=== PATIENT | female | born 1935 | race Caucasian/White ===

== ENCOUNTER → 2016-04-29 | Outpatient (CLI) | payer OTHER ==
[~2016-04-29] MED LIST: ASPEC81 PO; HYDR-5688 PO; LEVO100T7 PO; LPT40 PO
[2016-04-29 17:50] LABS: BASO % 0.5 %; BASO ABS # 0.04 K/uL (0-0.2); COMPLETE YES; EOS % 3.5 %; HEMATOCRIT 38.4 % (37-47); IG% 0.1 %; LYMPH % 30.2 %; LYMPH ABS # 2.35 K/uL (1.2-3.4); MEAN CELL VOLUME 85.7 fL (80-100); MEAN CORPUSCULAR HEMOGLOBIN 27.9 pg (25-34); MEAN CORPUSCULAR HGB CONC 32.6 g/dl (32-36); MEAN PLATELET VOLUME 10.4 fL (7.4-10.4); MONO % 5.8 %; NEUT % 59.9 %; PLATELET COUNT 289 K/uL (130-400); RED BLOOD COUNT 4.48 M/uL (4.2-5.4); WHITE BLOOD COUNT 7.79 K/uL (4.8-10.8)
[2016-04-29 18:19] LABS: ALT/SGPT 18 U/L (12-78); BLOOD UREA NITROGEN 14 mg/dl (7-18); BUN/CREATININE RATIO 15.8 (10-20); CALCIUM 9.5 mg/dl (8.5-10.1); CARBON DIOXIDE 24 mmol/L (21-32); CHLORIDE 106 mmol/L (98-107); CREATININE 0.89 mg/dl (0.60-1.20); GLUCOSE 90 mg/dl (70-99); POTASSIUM 3.8 mmol/L (3.5-5.1); SODIUM 142 mmol/L (136-145)
[2016-04-29 18:30] LABS: ALKALINE PHOSPHATASE 65 U/L (45-117); AST/SGOT 17 U/L (15-37); THYROID STIMULATING HORMONE 0.349 uIu/ml (0.300-4.500)
--- NOTE | 2016-05-06 08:46 | CODING QUERY MEDICAL NECESSITY ---
SUPPORTING DIAGNOSIS NEEDED A supporting diagnosis is required for the test/procedure performed on this patient in order for us to be reimbursed by the patient's insurance. Please provide a supporting diagnosis for the following test/procedure listed below next to the test name along with your signature. *If there is no additional diagnosis for this patient that would support the following test/procedure please document that below next to the test/procedure. Test(s)/Procedure(s) that require a supporting diagnosis: * VITAMIN D 25-HYDROXY DIAGNOSIS: * VITAMIN B-12 LEVEL DIAGNOSIS: * DOS: 04/29/16 Provider Signature: Date: Thank you Tonia Valencia Health Information Management Once completed, please kindly fax back to [phone] For questions please call [phone]
== END | disposition home or self-care (01) ==
LOC: C.LABPBG 14:55
PROVIDERS: ATTEND Internal Medicine Geriatric Medicine
DX: G31.84 Mild cognitive impairment of uncertain or unknown etiology (principal); E55.9 Vitamin D deficiency, unspecified

== ENCOUNTER → 2016-05-02 | Outpatient (CLI) | payer OTHER ==
[~2016-05-02] MED LIST changes: +GADAVIST IV PRN
--- NOTE | 2016-05-02 12:12 | DIAGNOSTIC IMAGING REPORT ---
CT OF THE CHEST WITHOUT IV CONTRAST CLINICAL HISTORY: R91.1 Solitary pulmonary nodule COMPARISON STUDY: Chest x-ray dated 06/22/2015 CT DOSE: 256.15 mGy.cm TECHNIQUE: CT of the thorax was performed from the thoracic inlet to the lung bases. Images are reviewed in the axial, sagittal, and coronal planes. IV contrast was not administered for this examination. FINDINGS: Thyroid: Imaged portions of the thyroid gland are normal in appearance. Thoracic aorta: The thoracic aorta is normal in course and caliber, noting standard 3 vessel arch anatomy. Heart: There are mild coronary artery calcifications. Lungs and pleural spaces: No pleural effusions are visualized. There is mild elevation left hemidiaphragm. There are few scattered 2 to 3 mm pulmonary nodules. There is a subpleural bilobed 9 x 4 mm right lower lobe pulmonary nodule as visualized in image #[id number]. Mediastinum: Mediastinal lymph nodes are at the upper limits of normal in size. Cathleen: There is no evidence of pathologic hilar adenopathy given the limitations of a noncontrast study. Axilla: Clear. Upper abdomen: There is a small hiatal hernia. There is a 22 mm left renal cyst. Skeletal structures: There is an old T12 compression deformity. IMPRESSION: 1. Bilobed subpleural 9 x 4 mm right lower lobe pulmonary nodule. Follow-up per Fleischner criteria is recommended. Please refer to below summary of Fleischner criteria recommendations for follow-up of incidental CT nodules (Rodríguez Bee, Guidelines for management of small pulmonary nodules detected on CT scans: A statement from the Fleischner Society, Radiology 237: [phone].) Low Risk Patient: Minimal or no smoking or other known risk factors for malignancy <=4 mm: No follow-up needed. >4-6 mm: Initial follow-up CT at 12 months; if unchanged, no further follow-up. >6-8 mm: Initial follow-up CT at 6-12 months then at 18-24 months if no change. >8 mm: Follow-up CT at \R\3, 9, 24 months, or PET and/or biopsy. High Risk Patient: History of smoking or other known risk factors <=4 mm: Follow-up at 12 months; if unchanged, no further follow-up. >4-6 mm: Initial follow-up CT at 6-12 months then at 18-24 months if no change. >6-8 mm: Initial follow-up CT at 3-6 months then at 9-12 and 24 months if no change. >8 mm: Same as low risk patient. Note: Nodule size measured as average of length and width. Ground glass or partly solid nodules may require longer follow-up to exclude indolent adenocarcinoma. Electronically signed by: Félix Lucero M.D. 05/02/2016 12:10 PM Dictated Date/Time: 05/02/2016 12:03 PM
--- NOTE | 2016-05-02 13:34 | DIAGNOSTIC IMAGING REPORT ---
MRI OF THE BRAIN WITHOUT AND WITH IV CONTRAST CLINICAL HISTORY: G31.84 Mild cognitive impairment PULMONARY NODULES COMPARISON STUDY: 09/27/2015 TECHNIQUE: MRI of the brain was performed from the vertex to the skull base utilizing various T1 and T2 weighted sequences. Following the IV administration of 7.5 mL of Gadavist contrast, additional enhanced images were obtained. FINDINGS: Sagittal T1, axial diffusion, proton density and T2 weighted axial, coronal FLAIR, and pre and post axial T1-weighted images were acquired. These were supplemented with post gadolinium coronal T1 weighted images. No intra or extra-axial mass lesions are visualized. Axial diffusion-weighted images reveal no evidence of acute or subacute infarction. There is no evidence of ventricular dilatation. Proton density T2-weighted and FLAIR images reveal moderate foci of increased T2 signal within the white matter, likely on a small vessel basis. These remain essentially unchanged the prior September 2015 study. There are no abnormal flow voids. There is no evidence of pathologic enhancement. IMPRESSION: No significant change the prior study. No acute findings. No evidence of intracranial mass. No evidence of acute or subacute infarction Electronically signed by: Félix Lucero M.D. 05/02/2016 1:32 PM Dictated Date/Time: 05/02/2016 1:29 PM
== END | disposition home or self-care (01) ==
LOC: C.MRI 11:12
PROVIDERS: ATTEND Internal Medicine Geriatric Medicine
DX: G31.84 Mild cognitive impairment of uncertain or unknown etiology (principal); R91.1 Solitary pulmonary nodule

== ENCOUNTER 2016-08-03 10:14 | Inpatient (IN) | payer OTHER ==
[~2016-08-03] VITALS: Ht 167.6 cm; Wt 76.9 kg
[~2016-08-03 10:14] MED LIST changes: -ASPEC81 PO; -GADAVIST IV PRN; -LPT40 PO
[2016-08-03] MEDS ORDERED: SODIUM CHLORIDE 0.9% 1000ML 1,000 ML IV SCH (10:28)
--- NOTE | 2016-08-03 10:39 | EMERGENCY ROOM VISIT NOTE ---
History Report prepared by [employer]: [employer] Under the Supervision of: Dr. Jeff Frias M.D. First contact with patient: 10:28 Chief Complaint: STROKE SYMPTOMS Stated Complaint: NUMBNESS/WEAKNESS ON LEFT SIDE, DIZZY History of Present Illness The patient is an 81 year old female who presents to the Emergency Room with possible stroke symptoms. She is accompanied by her and daughter and was brought to the ED via EMS. The patient reports she woke up around 0800 this morning with persistent weakness and tingling to the left side of her body and a feeling of dizziness. Her family states they last saw her appear normal last night, before she went to bed. She normally ambulates with a walker and states she feels much more unsteady than usual this morning. She denies taking any daily medications for hypertension. She also denies any recent chest pain, shortness of breath or abdominal pain. Source of History: patient, family Onset: 0800 this morning Position: other (left side of body) Quality: numbness (numbness and weakness to left side of body) Timing: other (persistent) Associated Symptoms: No chest pain, No SOB, No abdominal pain Review of Systems See HPI for pertinent positives & negatives. A total of 10 systems reviewed and were otherwise negative. Past Medical & Surgical Medical Problems: (1) Closed pelvic ring fracture (2) CVA (cerebral vascular accident) (3) Multiple closed fractures of pelvis without disruption of pelvic ring (4) No known allergies (5) Radiculopathy (6) Right clavicle fracture Social History Smoking Status: Never Smoker Alcohol Use: none Drug Use: none Marital Status: Housing Status: lives with significant other Occupation Status: retired Current/Historical Medications Scheduled Levothyroxine Sodium (Levothyroxine Sodium), 1 TAB PO DAILY Allergies Coded Allergies: No Known Allergies (Unverified , 08/03/16) Physical Exam Vital Signs Date Time Temp Pulse Resp B/P (MAP) Pulse Ox O2 Delivery O2 Flow Rate FiO2 08/03/16 13:02 164/83 08/03/16 12:44 103 16 92 08/03/16 12:32 148/99 08/03/16 12:14 102 15 95 08/03/16 12:02 175/83 08/03/16 11:45 95 Room Air 08/03/16 11:44 118 20 95 08/03/16 11:32 155/88 08/03/16 11:02 179/93 08/03/16 10:59 94 Room Air 08/03/16 10:59 100 08/03/16 10:33 182/94 08/03/16 10:19 36.8 103 20 186/85 93 Room Air Physical Exam GENERAL: Patient is a well-nourished 81 year old female, she is ataxic when walking. HEAD: Normocephalic atraumatic EYES: Ocular movements intact pupils equal and react to light OROPHARYNX: mucous membranes are moist no exudates present no erythema or edema present NECK: Supple no nuchal rigidity CHEST: Good equal expansion LUNGS: Clear and equal to auscultation CARDIAC: Normal S1 and S2 ABDOMEN: Soft nontender no guarding BACK: No CVA tenderness EXTREMITIES: No pain upon palpation normal muscle strength in all groups no clubbing cyanosis or edema NEURO: Patient is following commands is answering questions appropriately. Alert and oriented x3 Cranial Nerves 2-12 grossly intact Medical Decision & Procedures ER Provider Diagnostic Interpretation: Radiology results as stated below per my review and radiologist interpretation: CHEST ONE VIEW PORTABLE CLINICAL HISTORY: Stroke LEFT-SIDED NUMBNESS AND WEAKNESS COMPARISON STUDY: 06/22/2015 FINDINGS: The cardiac and mediastinal contours are normal. There is no evidence of focal pulmonary consolidation. There is no evidence of failure. No pleural effusions are visualized.[There is stable minor blunting of the left lateral costophrenic angle. There is an old right clavicular deformity. IMPRESSION: Stable blunting of the left lateral costophrenic angle. No evidence of failure. No evidence of acute parenchymal consolidation Electronically signed by: Félix Lucero M.D. 08/03/2016 10:[address] HEAD WITHOUT CONTRAST (CT) CLINICAL HISTORY: Stroke RIGHT-SIDED WEAKNESS, NUMBNESS, DIZZINESS.. COMPARISON STUDY: MRI the brain dated 05/02/2016 TECHNIQUE: Axial CT of the brain is performed from the vertex to the skull base. IV contrast was not administered for this examination. CT DOSE: 537.48 mGy.cm FINDINGS: No intra or extra-axial mass lesions are visualized. There is no CT evidence of acute cortical infarction. There is no evidence of midline shift. There is no acute hemorrhage. No calvarial fractures are visualized. There are patchy white matter hypodensities likely on a small vessel basis. There are old basal ganglia and internal capsule lacunar infarcts. There is no evidence of pathologic ventricular dilatation. There is no evidence of acute sinusitis IMPRESSION: No acute intracranial findings Electronically signed by: Félix Lucero M.D. 08/03/2016 10:55 AM Laboratory Results 08/03/16 10:56 Red Blood Count 4.50, Mean Corpuscular Volume 85.1, Mean Corpuscular Hemoglobin 28.2, Mean Corpuscular Hemoglobin Concent 33.2, Mean Platelet Volume 9.6, Neutrophils (%) (Auto) 77.5, Lymphocytes (%) (Auto) 15.5, Monocytes (%) (Auto) 5.2, Eosinophils (%) (Auto) 1.1, Basophils (%) (Auto) 0.4, Neutrophils # (Auto) 5.39, Lymphocytes # (Auto) 1.08, Monocytes # (Auto) 0.36, Eosinophils # (Auto) 0.08, Basophils # (Auto) 0.03 08/03/16 10:56 Test 08/03/16 10:37 08/03/16 10:56 08/03/16 11:05 08/03/16 11:12 Bedside Glucose 100 mg/dl (70-90) White Blood Count 6.96 K/uL (4.8-10.8) Red Blood Count 4.50 M/uL (4.2-5.4) Hemoglobin 12.7 g/dL (12.0-16.0) Hematocrit 38.3 % (37-47) Mean Corpuscular Volume 85.1 fL (80-100) Mean Corpuscular Hemoglobin 28.2 pg (25-34) Mean Corpuscular Hemoglobin Concent 33.2 g/dl (32-36) Platelet Count 219 K/uL (130-400) Mean Platelet Volume 9.6 fL (7.4-10.4) Neutrophils (%) (Auto) 77.5 % Lymphocytes (%) (Auto) 15.5 % Monocytes (%) (Auto) 5.2 % Eosinophils (%) (Auto) 1.1 % Basophils (%) (Auto) 0.4 % Neutrophils # (Auto) 5.39 K/uL (1.4-6.5) Lymphocytes # (Auto) 1.08 K/uL (1.2-3.4) Monocytes # (Auto) 0.36 K/uL (0.11-0.59) Eosinophils # (Auto) 0.08 K/uL (0-0.5) Basophils # (Auto) 0.03 K/uL (0-0.2) RDW Standard Deviation 44.8 fL (36.4-46.3) RDW Coefficient of Variation 14.3 % (11.5-14.5) Immature Granulocyte % (Auto) 0.3 % Immature Granulocyte # (Auto) 0.02 K/uL (0.00-0.02) Prothrombin Time 11.0 SECONDS (9.0-12.0) Prothromb Time International Ratio 1.0 (0.9-1.1) Activated Partial Thromboplast Time 25.4 SECONDS (21.0-31.0) Partial Thromboplastin Ratio 1.0 Anion Gap 8.0 mmol/L (3-11) Est Creatinine Clear Calc Drug Dose 47.7 ml/min Estimated GFR () 63.0 Estimated GFR (Non- 54.4 BUN/Creatinine Ratio 13.4 (10-20) Calcium Level 9.0 mg/dl (8.5-10.1) Total Creatine Kinase 51 U/L (26-192) Creatine Kinase MB 0.8 ng/ml (0.5-3.6) Creatine Kinase MB Ratio 1.6 (0-3.0) Troponin I < 0.015 ng/ml (0-0.045) Bedside Prothrombin Time INR 1.1 (0.9-1.1) Urine Color YELLOW Urine Appearance CLEAR (CLEAR) Urine pH 7.0 (4.5-7.5) Urine Specific [place] 1.007 (1.000-1.030) Urine Protein NEG (NEG) Urine Glucose (UA) NEG (NEG) Urine Ketones NEG (NEG) Urine Occult Blood 2+ (NEG) Urine Nitrite NEG (NEG) Urine Bilirubin NEG (NEG) Urine Urobilinogen NEG (NEG) Urine Leukocyte Esterase TRACE (NEG) Urine WBC (Auto) 1-5 /hpf (0-5) Urine RBC (Auto) 5-10 /hpf (0-4) Urine Hyaline Casts (Auto) 0 /lpf (0-5) Urine Epithelial Cells (Auto) 0-5 /lpf (0-5) Urine Bacteria (Auto) NEG (NEG) Labs reviewed by ED physician. Medications Administered Medications (Trade) Dose Ordered Sig/Dianelys Route Start Time Stop Time Status Last Admin Dose Admin Sodium Chloride 1,000 ml @ 50 mls/hr Q20H IV 08/03/16 10:28 09/02/16 10:27 08/03/16 11:57 50 MLS/HR Aspirin (Aspirin Chew) 324 mg NOW STAT PO 08/03/16 11:09 08/03/16 11:11 DC 08/03/16 11:26 324 MG Sodium Chloride 500 ml @ 999 mls/hr Q31M STAT IV 08/03/16 11:09 08/03/16 11:39 DC 08/03/16 11:29 999 MLS/HR ECG Indication: weakness Rate (beats per minute): 100 Rhythm: normal sinus Findings: LBBB, no acute ischemic change, no ectopy ED Course 1030: Past medical records reviewed. The patient was evaluated in room B10. A complete history and physical examination was performed. 1028: NSS 1000 ml @ 50 mls/hr IV. 1109: NSS 500 ml @ 999 mls/hr IV, Aspirin 324 mg PO. 1115: I reevaluated the patient. She is resting comfortably. I discussed my recommendation that she remain in the hospital for further evaluation and management and she and her family verbalized complete understanding and agreement. 1130: I discussed the patients case with Dr. Waldron, [facility] Hospitalist. The patient will be further evaluated. Medical Decision Medication Reconciliation: I attest that I have personally reviewed the patient' s current medication list Blood Pressure Screening: Patient was found to have an elevated blood pressure and was referred to their primary care doctor for recheck and further treatment Prior records/ancillary studies reviewed and summarized above. Nursing notes reviewed. Additional history obtained from the patients family. Differential diagnosis: Etiologies such as metabolic, infection, hypo/hyperglycemia, electrolyte abnormalities, cardiac sources, intracerebral event, toxicologic, neurologic, as well as others were entertained. This is an 81-year-old female who presents emergency department with left-sided weakness and numbness. The patient's last well-known time was last evening. She is out of the window for stroke protocol. In addition the patient has what appears to be new lacunar and basal ganglia infarcts on CAT scan of the head. These appear to be new since April of this year. Based on these findings the patient was given normal saline bolus and given 324 mg of aspirin. I did discuss the case with the hospitalist service who agreed to admit the patient. Patient and family were in agreement with the treatment plan. Consults Time Called: 1125 Consulting Physician: Dr. Waldron, [facility] Returned Call: 1130 I discussed the patients case with Dr. Waldron [facility] Hospitalist. The patient will be further evaluated. Impression Primary Impression: Right sided weakness Scribe Attestation The scribe's documentation has been prepared under my direction and personally reviewed by me in its entirety. I confirm that the note above accurately reflects all work, treatment, procedures, and medical decision making performed by me. Departure Information Dispostion Being Evaluated By Hospitalist Referrals Miguel Pope M.D. (PCP) Patient Instructions My [facility]
--- NOTE | 2016-08-03 10:46 | DIAGNOSTIC IMAGING REPORT ---
CHEST ONE VIEW PORTABLE CLINICAL HISTORY: Stroke LEFT-SIDED NUMBNESS AND WEAKNESS COMPARISON STUDY: 06/22/2015 FINDINGS: The cardiac and mediastinal contours are normal. There is no evidence of focal pulmonary consolidation. There is no evidence of failure. No pleural effusions are visualized.[There is stable minor blunting of the left lateral costophrenic angle. There is an old right clavicular deformity. IMPRESSION: Stable blunting of the left lateral costophrenic angle. No evidence of failure. No evidence of acute parenchymal consolidation Electronically signed by: Félix Lucero M.D. 08/03/2016 10:45 AM Dictated Date/Time: 08/03/2016 10:44 AM
--- NOTE | 2016-08-03 10:57 | DIAGNOSTIC IMAGING REPORT ---
CT HEAD WITHOUT CONTRAST (CT) CLINICAL HISTORY: Stroke RIGHT-SIDED WEAKNESS, NUMBNESS, DIZZINESS.. COMPARISON STUDY: MRI the brain dated 05/02/2016 TECHNIQUE: Axial CT of the brain is performed from the vertex to the skull base. IV contrast was not administered for this examination. CT DOSE: 537.48 mGy.cm FINDINGS: No intra or extra-axial mass lesions are visualized. There is no CT evidence of acute cortical infarction. There is no evidence of midline shift. There is no acute hemorrhage. No calvarial fractures are visualized. There are patchy white matter hypodensities likely on a small vessel basis. There are old basal ganglia and internal capsule lacunar infarcts. There is no evidence of pathologic ventricular dilatation. There is no evidence of acute sinusitis IMPRESSION: No acute intracranial findings Electronically signed by: Félix Lucero M.D. 08/03/2016 10:55 AM Dictated Date/Time: 08/03/2016 10:53 AM
[2016-08-03 11:08] LABS: BASO % 0.4 %; BASO ABS # 0.03 K/uL (0-0.2); COMPLETE YES; EOS % 1.1 %; HEMATOCRIT 38.3 % (37-47); IG% 0.3 %; LYMPH % 15.5 %; LYMPH ABS # 1.08 K/uL (1.2-3.4); MEAN CELL VOLUME 85.1 fL (80-100); MEAN CORPUSCULAR HEMOGLOBIN 28.2 pg (25-34); MEAN CORPUSCULAR HGB CONC 33.2 g/dl (32-36); MEAN PLATELET VOLUME 9.6 fL (7.4-10.4); MONO % 5.2 %; NEUT % 77.5 %; PLATELET COUNT 219 K/uL (130-400); WHITE BLOOD COUNT 6.96 K/uL (4.8-10.8)
[2016-08-03] MEDS ORDERED: SODIUM CHLORIDE 0.9% 500ML 500 ML IV STA (11:09)
[2016-08-03] MEDS ORDERED: ASPIRIN 81 MG CHEW PO STA (11:09)
[2016-08-03 11:25] LABS: URINE APPEARANCE CLEAR (CLEAR); URINE BILIRUBIN NEG (NEG); URINE COLOR YELLOW; URINE EPITHELIAL CELL AUTO 0-5 /lpf (0-5); URINE NITRITE NEG (NEG); URINE SPECIFIC GRAVITY 1.007 (1.000-1.030); UROBILINOGEN NEG (NEG); ZZUR CULT IF INDIC CLEAN CATCH NO
[2016-08-03 11:26] LABS: BLOOD UREA NITROGEN 13 mg/dl (7-18); BUN/CREATININE RATIO 13.4 (10-20); CARBON DIOXIDE 27 mmol/L (21-32); CHLORIDE 109 mmol/L (98-107); CREATININE 0.97 mg/dl (0.60-1.20); GLUCOSE 104 mg/dl (70-99); POTASSIUM 4.1 mmol/L (3.5-5.1); SODIUM 144 mmol/L (136-145)
[2016-08-03 11:26] LABS: MANUAL MICROSCOPIC REQUIRED? NO; REVIEW REQ? NO
[2016-08-03 11:31] LABS: CKMB/CK RATIO 1.6 (0-3.0)
[2016-08-03 11:45] VITALS: O2SAT 95; Ht 167.6 cm; Wt 76.9 kg
[2016-08-03] MEDS ORDERED: ACETAMINOPHEN IV 100 ML IV PRN (12:00)
[2016-08-03] MEDS ORDERED: ONDANSETRON INJ 2 MG/ML 2 ML VIAL IV PRN (12:00)
[2016-08-03] MEDS ORDERED: PHARMACIST DISCHARGE MED REC CONSULT PRN (12:00)
--- NOTE | 2016-08-03 12:53 | History and Physical ---
History & Physical Date & Time of Service: Aug 03, 2016 at 12:39 Chief Complaint: Numbness/Weakness On Left Side, Dizzy Primary Care Physician: Miguel Pope M.D. History of Present Illness Source: patient, family, spouse The patient is an 81-year-old female who presents to the emergency department via EMS, accompanied by her daughter and , with report of awakening at 8: 00 this morning with persistent weakness and tingling to left side of her body and dizziness. She was last seen to be in a normal state of health before she went to bed last evening. She has been ambulating with a walker for the past year and a half after a mechanical fall, and feels much more unsteady than usual this morning. When she and her were in [place] in March, she was noted by friends to be somewhat generally weaker, and thus when she returned to the area in April, she was seen by her PCP, who ordered an MRI of the brain which was negative at that time. 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 The patient has not had any recent travels other than as noted to [place]. She does close her left eye unconsciously during our conversation, and upon questioning, reports that she does occasionally had double vision, and by discussion with her family, is likely since her MRI of May 02. She does appear to have some issues with memory dysfunction and recollection. Social History Smoking Status: Never Smoker Smokeless Tobacco Use: No Alcohol Use: none Drug Use: none Marital Status: Housing status: lives with family Occupational Status: retired Multi-Drug Resistant Organisms History of MDRO: No Allergies Coded Allergies: No Known Allergies (Unverified , 08/03/16) Home Medications Scheduled Levothyroxine Sodium (Levothyroxine Sodium), 1 TAB PO DAILY Review of Systems The patient, as supported by family, denies chest pain, palpitations, shortness of breath, cough, lower extremity swelling, hearing change, sore throat, fevers , chills, sweats, weight change, fatigue, nausea, vomiting, abdominal pain, pelvic pain, blood in urine or stool, dysuria, urinary frequency or urgency, headache, rash, abnormal bruising or bleeding, imbalance, generalized weakness, numbness or tingling in arms or legs, arthralgias or myalgias, back or neck pain , night sweats, or allergy symptoms. The review of systems is otherwise negative other than for that already noted above, and at least 10 systems have been reviewed. Physical Exam Vital Signs Date Time Temp Pulse Resp B/P (MAP) Pulse Ox O2 Delivery O2 Flow Rate FiO2 08/03/16 10:59 94 Room Air 08/03/16 10:59 100 08/03/16 10:19 36.8 103 20 186/85 93 Room Air The patient is awake, alert and oriented 3, normocephalic and atraumatic, lying in bed and in no acute distress, but does show mild memory impairment. HEENT--PERRL, EOMI, mucous membranes and oropharynx dry. Neck--supple, no JVD or bruits, thyroid normal, trachea midline, no adenopathy. Heart--normal S1 and S2, no extra beats, no murmurs, rubs or gallops. Lungs--clear bilaterally but diminished throughout, no respiratory distress, no accessory muscle use. Abdomen--normal bowel sounds and soft, nontender and nondistended, no hernias or masses, no organomegaly. Extremities--no cyanosis, clubbing or edema. There are good distal pulses b/l. Dermatologic--normal skin turgor, normal color, warm and dry, no abnormal lymph nodes, no rash. Neurologic--cranial nerves II through XII grossly intact, motor strength 4+ out of 5 left upper lower extremity. Rheumatologic--normal range of motion. Psychiatric--normal affect. Diagnostics Laboratory Results Results Past 24 Hours Test 08/03/16 10:37 08/03/16 10:56 08/03/16 11:05 08/03/16 11:12 Range/Units Bedside Glucose 100 70-90 mg/dl White Blood Count 6.96 4.8-10.8 K/uL Red Blood Count 4.50 4.2-5.4 M/uL Hemoglobin 12.7 12.0-16.0 g/dL Hematocrit 38.3 37-47 % Mean Corpuscular Volume 85.1 80-100 fL Mean Corpuscular Hemoglobin 28.2 25-34 pg Mean Corpuscular Hemoglobin Concent 33.2 32-36 g/dl Platelet Count 219 130-400 K/uL Mean Platelet Volume 9.6 7.4-10.4 fL Neutrophils (%) (Auto) 77.5 % Lymphocytes (%) (Auto) 15.5 % Monocytes (%) (Auto) 5.2 % Eosinophils (%) (Auto) 1.1 % Basophils (%) (Auto) 0.4 % Neutrophils # (Auto) 5.39 1.4-6.5 K/uL Lymphocytes # (Auto) 1.08 1.2-3.4 K/uL Monocytes # (Auto) 0.36 0.11-0.59 K/uL Eosinophils # (Auto) 0.08 0-0.5 K/uL Basophils # (Auto) 0.03 0-0.2 K/uL RDW Standard Deviation 44.8 36.4-46.3 fL RDW Coefficient of Variation 14.3 11.5-14.5 % Immature Granulocyte % (Auto) 0.3 % Immature Granulocyte # (Auto) 0.02 0.00-0.02 K/uL Prothrombin Time 11.0 9.0-12.0 SECONDS Prothromb Time International Ratio 1.0 0.9-1.1 Activated Partial Thromboplast Time 25.4 21.0-31.0 SECONDS Partial Thromboplastin Ratio 1.0 Sodium Level 144 136-145 mmol/L Potassium Level 4.1 3.5-5.1 mmol/L Chloride Level 109 98-107 mmol/L Carbon Dioxide Level 27 21-32 mmol/L Anion Gap 8.0 3-11 mmol/L Blood Urea Nitrogen 13 7-18 mg/dl Creatinine 0.97 0.60-1.20 mg/dl Est Creatinine Clear Calc Drug Dose 47.7 ml/min Estimated GFR () 63.0 Estimated GFR (Non- 54.4 BUN/Creatinine Ratio 13.4 10-20 Random Glucose 104 70-99 mg/dl Calcium Level 9.0 8.5-10.1 mg/dl Total Creatine Kinase 51 26-192 U/L Creatine Kinase MB 0.8 0.5-3.6 ng/ml Creatine Kinase MB Ratio 1.6 0-3.0 Troponin I < 0.015 0-0.045 ng/ml Bedside Prothrombin Time INR 1.1 0.9-1.1 Urine Color YELLOW Urine Appearance CLEAR CLEAR Urine pH 7.0 4.5-7.5 Urine Specific [place] 1.007 1.000-1.030 Urine Protein NEG NEG Urine Glucose (UA) NEG NEG Urine Ketones NEG NEG Urine Occult Blood 2+ NEG Urine Nitrite NEG NEG Urine Bilirubin NEG NEG Urine Urobilinogen NEG NEG Urine Leukocyte Esterase TRACE NEG Urine WBC (Auto) 1-5 0-5 /hpf Urine RBC (Auto) 5-10 0-4 /hpf Urine Hyaline Casts (Auto) 0 0-5 /lpf Urine Epithelial Cells (Auto) 0-5 0-5 /lpf Urine Bacteria (Auto) NEG NEG Diagnostic Radiology Patient Name: TINA QUEVEDO Unit Number: [id number] Dictated: 08/03/161052 Transcribed: 08/03/161052 ARG Printed Date/Time: [~ rep prt dt]/[~ rep prt tm] [~ rep ct labl] - [~ rep ct ivnm] [facility] [place] [address] Dictated: 08/03/161052 Transcribed: 08/03/161052 ARG Printed Date/Time: [~ rep prt dt]/[~ rep prt tm] [~ rep ct labl] - [~ rep ct ivnm] CT HEAD WITHOUT CONTRAST (CT) CLINICAL HISTORY: Stroke RIGHT-SIDED WEAKNESS, NUMBNESS, DIZZINESS.. COMPARISON STUDY: MRI the brain dated 05/02/2016 TECHNIQUE: Axial CT of the brain is performed from the vertex to the skull base. IV contrast was not administered for this examination. CT DOSE: 537.48 mGy.cm FINDINGS: No intra or extra-axial mass lesions are visualized. There is no CT evidence of acute cortical infarction. There is no evidence of midline shift. There is no acute hemorrhage. No calvarial fractures are visualized. There are patchy white matter hypodensities likely on a small vessel basis. There are old basal ganglia and internal capsule lacunar infarcts. There is no evidence of pathologic ventricular dilatation. There is no evidence of acute sinusitis IMPRESSION: No acute intracranial findings Electronically signed by: Félix Lucero M.D. 08/03/2016 10:55 AM Dictated Date/Time: 08/03/2016 10:53 AM The status of this report is Signed. Draft = Not yet reviewed or approved by Radiologist. Signed = Reviewed and approved by Radiologist. <AttendingPhy></AttendingPhy> <FamilyPhy>Miguel Pope M.D.</FamilyPhy> < PrimaryPhy>Miguel Pope M.D.</PrimaryPhy> <UnitNumber>[id number]</UnitNumber > <VisitNumber>[id number]</VisitNumber> <PatientName>TINA QUEVEDO</ PatientName> <DateOfBirth>1935</DateOfBirth> <Location>C.EDB</Location> < ServiceDate>08/03/16</ServiceDate> <MNE>ESINDI</MNE> <OrderingPhy>Jeff Frias MD</OrderingPhy> <OrderingPhyMNE>f rep ord dr nichols</OrderingPhyMNE> < DictatingPhyMNE>f rep dict dr nichols</DictatingPhyMNE> <CCListMNE>f rep ct mne</ CCListMNE> <AdmittingPhyMNE>f pt admit dr nichols</AdmittingPhyMNE> <AttendingPhyMNE >f pt attend dr nichols</AttendingPhyMNE> <ConsultingPhyMNE>f pt consult dr nichols</ConsultingPhyMNE> <FamilyPhyMNE>f pt fam dr nichols</FamilyPhyMNE> <OtherPhyMNE>f pt other dr nichols</OtherPhyMNE> < PrimaryPhyMNE>f pt prim care dr nichols</PrimaryPhyMNE> <ReferringPhyMNE>f pt referring dr nichols</ReferringPhyMNE> Patient Name: TINA QUEVEDO Unit Number: [id number] Dictated: 08/03/161043 Transcribed: 08/03/161043 ARG Printed Date/Time: [~ rep prt dt]/[~ rep prt tm] [~ rep ct labl] - [~ rep ct ivnm] [facility] [place] [address] Dictated: 08/03/161043 Transcribed: 08/03/161043 ARG Printed Date/Time: [~ rep prt dt]/[~ rep prt tm] [~ rep ct labl] - [~ rep ct ivnm] CHEST ONE VIEW PORTABLE CLINICAL HISTORY: Stroke LEFT-SIDED NUMBNESS AND WEAKNESS COMPARISON STUDY: 06/22/2015 FINDINGS: The cardiac and mediastinal contours are normal. There is no evidence of focal pulmonary consolidation. There is no evidence of failure. No pleural effusions are visualized.[There is stable minor blunting of the left lateral costophrenic angle. There is an old right clavicular deformity. IMPRESSION: Stable blunting of the left lateral costophrenic angle. No evidence of failure. No evidence of acute parenchymal consolidation Electronically signed by: Félix Lucero M.D. 08/03/2016 10:45 AM Dictated Date/Time: 08/03/2016 10:44 AM The status of this report is Signed. Draft = Not yet reviewed or approved by Radiologist. Signed = Reviewed and approved by Radiologist. <AttendingPhy></AttendingPhy> <FamilyPhy>Miguel Pope M.D.</FamilyPhy> < PrimaryPhy>Miguel Pope M.D.</PrimaryPhy> <UnitNumber>[id number]</UnitNumber > <VisitNumber>[id number]</VisitNumber> <PatientName>TINA QUEVEDO</ PatientName> <DateOfBirth>1935</DateOfBirth> <Location>C.EDB</Location> < ServiceDate>08/03/16</ServiceDate> <MNE>ESINDI</MNE> <OrderingPhy>Jeff Frias MD</OrderingPhy> <OrderingPhyMNE>f rep ord dr nichols</OrderingPhyMNE> < DictatingPhyMNE>f rep dict dr nichols</DictatingPhyMNE> <CCListMNE>f rep ct mne</ CCListMNE> <AdmittingPhyMNE>f pt admit dr nichols</AdmittingPhyMNE> <AttendingPhyMNE >f pt attend dr nichols</AttendingPhyMNE> <ConsultingPhyMNE>f pt consult dr nichols</ConsultingPhyMNE> <FamilyPhyMNE>f pt fam dr nichols</FamilyPhyMNE> <OtherPhyMNE>f pt other dr nichols</OtherPhyMNE> < PrimaryPhyMNE>f pt prim care dr nichols</PrimaryPhyMNE> <ReferringPhyMNE>f pt referring dr nichols</ReferringPhyMNE> EKG EKG shows normal sinus rhythm at 100 bpm, left bundle branch block, left axis deviation, no acute ST-T changes. 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 We will order an MRI of the brain combination, MRA of the head without contrast, MRA of neck combination, and 2-D echocardiogram with Dopplers. The patient be admitted to the telemetry unit for serial cardiac enzymes and cardiac rhythm monitoring. We'll consult PT, OT , ST, social media marketer and neurology. She was given chewable aspirin 324 mg in the emergency department, and this will be continued 81 mg chewable by mouth every morning. Of note, the patient was not on any antiplatelet agents. We'll start atorvastatin 40 mg by mouth daily once dysphagia screen is past. Also of note, the patient was initially assessed in the ED as a stroke alert. Hypothyroidism--we will hold her levothyroxine dosing until swallowing function verified to be normal, otherwise we'll place on IV dosing. Level of Care Telemetry Advanced Directives Existing Advance Directive: No Existing Living Will: No Existing Power of Pc Tech: No Resuscitation Status FULL RESUSCITATION VTE Prophylaxis VTE Risk Assessment Done? Y/N: Yes Risk Level: Moderate Given or contraindicated: SCD's
--- NOTE | 2016-08-03 13:59 | DIAGNOSTIC IMAGING REPORT ---
MR ANGIOGRAPHY OF THE [place] NO CONTRAST CLINICAL HISTORY: Stroke. Right-sided weakness. Numbness. Dizziness. COMPARISON STUDY: None. A 3-D [id number] MR angiographic sequence of the [place] was performed. Both the source and projection images were reviewed. There are no lesion suspicious for aneurysm. There are no major intracranial branch occlusions. There is no evidence of significant intracranial stenosis. There is a dominant left vertebral artery. IMPRESSION: Unremarkable MR angiography of the [place]. Electronically signed by: Félix Lucero M.D. 08/03/2016 1:58 PM Dictated Date/Time: 08/03/2016 1:55 PM
[2016-08-03] MEDS ORDERED: GADAVIST IV PRN (14:15)
--- NOTE | 2016-08-03 14:22 | DIAGNOSTIC IMAGING REPORT ---
MRI OF THE BRAIN WITHOUT AND WITH IV CONTRAST CLINICAL HISTORY: Stroke. Right-sided weakness. Numbness. COMPARISON STUDY: Head CT dated 08/03/2016, MRI the brain dated 05/02/2016 TECHNIQUE: MRI of the brain was performed from the vertex to the skull base utilizing various T1 and T2 weighted sequences. Following the IV administration of 8 mL of Gadavist contrast, additional enhanced images were obtained. FINDINGS: Sagittal T1, axial diffusion, proton density and T2 weighted axial, coronal FLAIR, and pre and post axial T1-weighted images were acquired. These were supplemented with post gadolinium coronal T1 weighted images. No intra or extra-axial mass lesions are visualized. There is an 8 mm focus of restricted water diffusion within the left thalamus, consistent with an acute/subacute infarct. There is no evidence of ventricular dilatation. Proton density T2-weighted and FLAIR images reveal scattered foci of increased T2 signal within the white matter, likely on a small vessel basis. Also evident is a focus of increased T2 signal at the level of the patient's acute/subacute left thalamic infarct. There are prominent perivascular spaces. There are no abnormal flow voids. There is no evidence of pathologic enhancement. IMPRESSION: Acute/subacute left thalamic infarct. Electronically signed by: Félix Lucero M.D. 08/03/2016 2:20 PM Dictated Date/Time: 08/03/2016 2:18 PM
--- NOTE | 2016-08-03 14:44 | DIAGNOSTIC IMAGING REPORT ---
NECK MRA HISTORY: Acute left thalamic stroke right-sided weakness. Numbness. TECHNIQUE: [id number] and gadolinium-enhanced MRA of the neck was performed both before and after the intravenous administration of contrast. All measurements were calculated based on NASCET criteria. Imaging was performed before and after administration of 8 cc of intravenous Gadavist COMPARISON STUDY: None. FINDINGS: The aortic arch and proximal great vessels are widely patent. There is no significant stenosis, occlusion, or dissection identified within the bilateral common carotid, internal carotid, or vertebral arteries. IMPRESSION: No significant stenosis, occlusion, or dissection identified within the carotid or vertebral arteries. Electronically signed by: Félix Lucero M.D. 08/03/2016 2:43 PM Dictated Date/Time: 08/03/2016 2:41 PM
[2016-08-03] MEDS: NSS + 20MEQ KCL 1000ML 1,000 ML IV SCH (15:57)
[2016-08-03 16:00] VITALS: O2SAT 95
[2016-08-03 16:16] VITALS: BP 167/92; PULSE 114; TEMP 36.9; O2SAT 94
[2016-08-03] MEDS ORDERED: NURSING VERBAL MED ORDER ONE (19:30)
[2016-08-03 20:06] VITALS: BP 160/84; PULSE 93; TEMP 36.7; O2SAT 92
[2016-08-03 20:39] LABS: CKMB/CK RATIO 2.4 (0-3.0)
[2016-08-04 00:21] VITALS: BP 84/57; PULSE 89; TEMP 36.7; O2SAT 95
[2016-08-04] MEDS: NSS + 20MEQ KCL 1000ML 1,000 ML IV SCH ×2 (01:52→11:50)
[2016-08-04 04:00] VITALS: BP 130/86; PULSE 82; TEMP 36.5; O2SAT 95
[2016-08-04 04:11] LABS: BASO % 0.6 %; BASO ABS # 0.04 K/uL (0-0.2); COMPLETE YES; HEMATOCRIT 37.4 % (37-47); IG% 0.3 %; LYMPH % 22.2 %; LYMPH ABS # 1.41 K/uL (1.2-3.4); MEAN CELL VOLUME 86.2 fL (80-100); MEAN CORPUSCULAR HEMOGLOBIN 27.6 pg (25-34); MEAN CORPUSCULAR HGB CONC 32.1 g/dl (32-36); MEAN PLATELET VOLUME 10.1 fL (7.4-10.4); MONO % 6.9 %; PLATELET COUNT 211 K/uL (130-400); RED BLOOD COUNT 4.34 M/uL (4.2-5.4); WHITE BLOOD COUNT 6.34 K/uL (4.8-10.8)
[2016-08-04 04:18] LABS: INR 1.1 (0.9-1.1); PROTHROMBIN TIME (PATIENT) 11.4 SECONDS (9.0-12.0)
[2016-08-04 04:44] LABS: BUN/CREATININE RATIO 12.5 (10-20); CALCIUM 8.2 mg/dl (8.5-10.1); CHOLESTEROL/HDL RATIO 5.1; CKMB/CK RATIO 2.9 (0-3.0); CREATININE 0.79 mg/dl (0.60-1.20); MAGNESIUM 2.1 mg/dl (1.8-2.4)
[2016-08-04 07:02] LABS: ESTIMATED AVERAGE GLUCOSE 120 mg/dl; HA1C FLAG Normal (Normal)
[2016-08-04 08:05] VITALS: BP 160/87; PULSE 91; TEMP 36.8; O2SAT 93
--- NOTE | 2016-08-04 08:52 | Clinical Documentation Query ---
CLINICAL DOCUMENTATION QUERY 81 year old female who presents to the Emergency Room with left sided weakness. MRI of brain confirms acute/subacute left thalamic infarct. In your clinical opinion is this patient being managed for: (X ) Acute/subacute Cerebral infarction (CVA) treated with ASA. ( ) Other explanation of clinical findings (Please Explain) ( ) Unable to determine (Please Define) ( ) Need to Discuss ( ) Not Agree The medical record reflects the following clinical findings, treatment, and risk factors. Clinical Indicators: As above. Treatment: ASA Risk Factors: Age Please clarify and document your clinical opinion in the progress notes and discharge summary. Terms such as "probable", "suspected", "likely", "questionable", "possible", or "still to be ruled out" are acceptable. IF IN AGREEMENT, YOU MUST DOCUMENT ABOVE DIAGNOSTIC STATEMENT IN DAILY PROGRESS NOTES AND DISCHARGE SUMMARY. This document is not part of the patient's record. Thank You, Nate Pillai, WADE [phone]
[2016-08-04] MEDS ORDERED: ATORVASTATIN 40 MG TAB PO SCH (09:00)
[2016-08-04] MEDS ORDERED: ASPIRIN 81 MG ECTAB PO SCH (09:00)
--- NOTE | 2016-08-04 09:20 | Neurology Consultation ---
Neurology Consultation Date of Consultation: Aug 04, 2016. Attending Physician: Piero Rivera D.O. Primary Care Physician: Miguel Pope M.D. Reason for Consultation: stroke History of Present Illness Source: patient, hospital records The patient is an 81 year old female with a chief complaint of persistent mild to moderate weakness, unsteadiness, and numbness beginning yesterday morning upon awakening. These signs and symptoms were largely provided by the family. The patient does not really seem to be aware of why she is here. Past Medical/Surgical History Medical Problems: (1) Ambulatory dysfunction Status: Acute (2) Clavicle fracture Status: Acute (3) Fall Status: Acute (4) Pelvic fracture Status: Acute (5) Right sided weakness Status: Acute Family History Noncontributory due to advanced age Social History Smokeless Tobacco Use: No Alcohol Use: none Drug Use: none Marital Status: Housing Status: lives with significant other Occupation Status: retired Allergies Coded Allergies: No Known Allergies (Unverified , 08/03/16) Current Inpatient Medications Current Inpatient Medications Medications (Trade) Dose Ordered Sig/Dianelys Route Start Time Stop Time Status Last Admin Dose Admin Ondansetron HCl (Zofran Inj) 4 mg Q6H PRN IV 08/03/16 12:00 09/02/16 11:59 Acetaminophen 100 ml @ 400 mls/hr Q8H PRN IV 08/03/16 12:00 09/02/16 11:59 Potassium Chloride/Sodium Chloride 1,000 ml @ 100 mls/hr Q10H IV 08/03/16 16:00 09/02/16 15:59 08/04/16 01:52 100 MLS/HR Atorvastatin Calcium (Lipitor Tab) 40 mg QAM PO 08/04/16 09:00 09/03/16 08:59 Future hold 08/04/16 08:10 40 MG Aspirin (Ecotrin Tab) 81 mg QAM PO 08/04/16 09:00 09/03/16 08:59 Future hold 08/04/16 08:09 81 MG Miscellaneous Information (Pharmacist Discharge Med Rec Consult) 1 ea UD PRN N/A 08/03/16 12:00 09/02/16 11:59 Gadobutrol (Gadavist) 8 mmol UD PRN IV 08/03/16 14:15 08/07/16 14:14 Review of Systems denies headache, vision change, speech change, vertigo A full 10 point review of systems was obtained from this patient with pertinent positives and negatives described in the history of present illness and listed above. All other systems reviewed and are negative. Physical Exam Vital Signs (Past 24 Hrs): Date Time Temp Pulse Resp B/P (MAP) Pulse Ox O2 Delivery O2 Flow Rate FiO2 08/04/16 08:05 36.8 91 16 160/87 (111) 93 08/04/16 04:00 36.5 82 18 130/86 (101) 95 Room Air 08/04/16 04:00 Room Air 08/04/16 00:21 36.7 89 18 84/57 (66) 95 Room Air 08/04/16 00:00 Room Air 08/03/16 20:06 36.7 93 18 160/84 (109) 92 Room Air 08/03/16 20:00 Room Air 08/03/16 16:16 36.9 114 16 167/92 (117) 94 Room Air 08/03/16 16:00 95 Room Air 08/03/16 14:41 106 20 178/95 95 08/03/16 13:07 94 16 93 08/03/16 13:02 164/83 08/03/16 12:44 103 16 92 08/03/16 12:32 148/99 08/03/16 12:14 102 15 95 08/03/16 12:02 175/83 08/03/16 11:45 95 Room Air 08/03/16 11:44 118 20 95 08/03/16 11:32 155/88 08/03/16 11:02 179/93 08/03/16 10:59 94 Room Air 08/03/16 10:59 100 08/03/16 10:33 182/94 08/03/16 10:19 36.8 103 20 186/85 93 Room Air not oriented to month, date, poor delayed recall, poor concentration, unable to spell WORLD backwards or state months of the year backwards. has mild dysmetria on finger to nose and heel to whitten on the right The patient is a well-developed elderly female, no acute distress. She is alert and oriented to person and hospital only. Attention normal. Recent memory impaired. Patient exhibits a normal spontaneous speech pattern. Normal vocabulary. Visual urena full to confrontation. Visual acuity normal. Pupils equal round reactive to light and accommodation. Eye movements normal. Facial sensation intact. Palate elevates to midline. Tongue protrudes to midline. Shoulder shrug and hearing intact. Sensation intact to light touch, temperature , vibration, and proprioception for the arms and legs. Deep tendon reflexes are intact and symmetrical. There is mild dysmetria with finger to nose and heel to whitten on the right. No dysmetria on the left. Ophthalmoscopic examination reveals normal-appearing optic disks and posterior segments. No papilledema or hemorrhages. Carotid pulses normal to auscultation bilaterally, no bruits. Gait and station not tested due to safety concerns. Muscle strength and tone normal for the arms and legs bilaterally. No atrophy. No abnormal movements. Laboratory Results Past 24 Hours: 08/04/16 04:06 Red Blood Count 4.34, Mean Corpuscular Volume 86.2, Mean Corpuscular Hemoglobin 27.6, Mean Corpuscular Hemoglobin Concent 32.1, Mean Platelet Volume 10.1, Neutrophils (%) (Auto) 67.0, Lymphocytes (%) (Auto) 22.2, Monocytes (%) (Auto) 6.9, Eosinophils (%) (Auto) 3.0, Basophils (%) (Auto) 0.6, Neutrophils # (Auto) 4.24, Lymphocytes # (Auto) 1.41, Monocytes # (Auto) 0.44, Eosinophils # (Auto) 0.19, Basophils # (Auto) 0.04 08/04/16 04:06 Test 08/03/16 10:37 08/03/16 10:56 08/03/16 11:05 08/03/16 11:12 Bedside Glucose 100 mg/dl (70-90) Activated Partial Thromboplast Time 25.4 SECONDS (21.0-31.0) Partial Thromboplastin Ratio 1.0 Estimated Average Glucose 120 mg/dl Hemoglobin A1c 5.8 % (4.5-5.6) Bedside Prothrombin Time INR 1.1 (0.9-1.1) Urine Color YELLOW Urine Appearance CLEAR (CLEAR) Urine pH 7.0 (4.5-7.5) Urine Specific [place] 1.007 (1.000-1.030) Urine Protein NEG (NEG) Urine Glucose (UA) NEG (NEG) Urine Ketones NEG (NEG) Urine Occult Blood 2+ (NEG) Urine Nitrite NEG (NEG) Urine Bilirubin NEG (NEG) Urine Urobilinogen NEG (NEG) Urine Leukocyte Esterase TRACE (NEG) Urine WBC (Auto) 1-5 /hpf (0-5) Urine RBC (Auto) 5-10 /hpf (0-4) Urine Hyaline Casts (Auto) 0 /lpf (0-5) Urine Epithelial Cells (Auto) 0-5 /lpf (0-5) Urine Bacteria (Auto) NEG (NEG) Test 08/04/16 04:06 White Blood Count 6.34 K/uL (4.8-10.8) Red Blood Count 4.34 M/uL (4.2-5.4) Hemoglobin 12.0 g/dL (12.0-16.0) Hematocrit 37.4 % (37-47) Mean Corpuscular Volume 86.2 fL (80-100) Mean Corpuscular Hemoglobin 27.6 pg (25-34) Mean Corpuscular Hemoglobin Concent 32.1 g/dl (32-36) Platelet Count 211 K/uL (130-400) Mean Platelet Volume 10.1 fL (7.4-10.4) Neutrophils (%) (Auto) 67.0 % Lymphocytes (%) (Auto) 22.2 % Monocytes (%) (Auto) 6.9 % Eosinophils (%) (Auto) 3.0 % Basophils (%) (Auto) 0.6 % Neutrophils # (Auto) 4.24 K/uL (1.4-6.5) Lymphocytes # (Auto) 1.41 K/uL (1.2-3.4) Monocytes # (Auto) 0.44 K/uL (0.11-0.59) Eosinophils # (Auto) 0.19 K/uL (0-0.5) Basophils # (Auto) 0.04 K/uL (0-0.2) RDW Standard Deviation 45.4 fL (36.4-46.3) RDW Coefficient of Variation 14.4 % (11.5-14.5) Immature Granulocyte % (Auto) 0.3 % Immature Granulocyte # (Auto) 0.02 K/uL (0.00-0.02) Prothrombin Time 11.4 SECONDS (9.0-12.0) Prothromb Time International Ratio 1.1 (0.9-1.1) Anion Gap 8.0 mmol/L (3-11) Est Creatinine Clear Calc Drug Dose 58.6 ml/min Estimated GFR () 80.8 Estimated GFR (Non- 69.7 BUN/Creatinine Ratio 12.5 (10-20) Calcium Level 8.2 mg/dl (8.5-10.1) Magnesium Level 2.1 mg/dl (1.8-2.4) Total Creatine Kinase 76 U/L (26-192) Creatine Kinase MB 2.2 ng/ml (0.5-3.6) Creatine Kinase MB Ratio 2.9 (0-3.0) Troponin I 0.119 ng/ml (0-0.045) Triglycerides Level 73 mg/dl (0-150) Cholesterol Level 175 mg/dl (0-200) HDL Cholesterol 34 mg/dl LDL Cholesterol, Calculated 126 mg/dl VLDL Cholesterol, Calculated 15 mg/dl Cholesterol/HDL Ratio 5.1 Imaging Brain MRI reveals an area of restricted diffusion within the left thalamus consistent with an acute ischemic infarct, there is also evidence of extensive chronic small vessel ischemic disease throughout the brain parenchyma Impression Acute left thalamic ischemic infarct Patient has mild dysmetria for the right arm and leg 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
[2016-08-04] MEDS ORDERED: PERFLUTREN LIPID MICROSPHERE (DEFINITY) IV ONE (09:33)
--- NOTE | 2016-08-04 10:06 | Medical Student: [facility] ---
Consultation Date of Consultation: Aug 04, 2016. Attending Physician: Tino Hernandez MD Reason for Consultation: possible stroke History of Present Illness Mrs. Perez is an 81-year-old female with a past medical history of hypothyroidism who presented to the ED yesterday on 08/03/16 with lightheadedness and some weakness noted by her . She denies any numbness/ tingling, visual changes, headache, dysarthria, or aphasia at the time of her episode and denies experiencing any of those symptoms since being admitted. When asked to elaborate on her lightheadedness, she did not describe it as vertigo, dizziness, or loss of balance. She has otherwise felt well and does not fully understand why she is in the hospital. MRI results are as follows: MRI OF THE BRAIN WITHOUT AND WITH IV CONTRAST CLINICAL HISTORY: Stroke. Right-sided weakness. Numbness. COMPARISON STUDY: Head CT dated 08/03/2016, MRI the brain dated 05/02/2016 TECHNIQUE: MRI of the brain was performed from the vertex to the skull base utilizing various T1 and T2 weighted sequences. Following the IV administration of 8 mL of Gadavist contrast, additional enhanced images were obtained. FINDINGS: Sagittal T1, axial diffusion, proton density and T2 weighted axial, coronal FLAIR, and pre and post axial T1-weighted images were acquired. These were supplemented with post gadolinium coronal T1 weighted images. No intra or extra-axial mass lesions are visualized. There is an 8 mm focus of restricted water diffusion within the left thalamus, consistent with an acute/subacute infarct. There is no evidence of ventricular dilatation. Proton density T2-weighted and FLAIR images reveal scattered foci of increased T2 signal within the white matter, likely on a small vessel basis. Also evident is a focus of increased T2 signal at the level of the patient's acute/subacute left thalamic infarct. There are prominent perivascular spaces. There are no abnormal flow voids. There is no evidence of pathologic enhancement. IMPRESSION: Acute/subacute left thalamic infarct. Electronically signed by: Félix Lucero M.D. 08/03/2016 2:20 PM Past Medical/Surgical History Medical History: Past medical history includes hypothyroidism, for which she takes Synthroid daily. Mrs. Perez estimates that she has been on it for the past 10 years. She denies any history of stroke, CA, cancer, diabetes, or hypertension. Surgical History: Past surgical history includes gallbladder and bilateral cataract removal. Family History Denies any family history of stroke. Her daughter had MS and has since . Her son had "heart problems," which she does not know the details of. Social History Smoking Status: Never Smoker History of Alcohol Use: No Drug Use: none Marital Status: Housing Status: lives with family Occupation Status: retired Allergies Coded Allergies: No Known Allergies (Unverified , 08/03/16) Medications Current Inpatient Medications Medications (Trade) Dose Ordered Sig/Dianelys Route Start Time Stop Time Status Last Admin Dose Admin Ondansetron HCl (Zofran Inj) 4 mg Q6H PRN IV 08/03/16 12:00 09/02/16 11:59 Acetaminophen 100 ml @ 400 mls/hr Q8H PRN IV 08/03/16 12:00 09/02/16 11:59 Potassium Chloride/Sodium Chloride 1,000 ml @ 100 mls/hr Q10H IV 08/03/16 16:00 09/02/16 15:59 08/04/16 01:52 100 MLS/HR Atorvastatin Calcium (Lipitor Tab) 40 mg QAM PO 08/04/16 09:00 09/03/16 08:59 Future hold 08/04/16 08:10 40 MG Aspirin (Ecotrin Tab) 81 mg QAM PO 08/04/16 09:00 09/03/16 08:59 Future hold 08/04/16 08:09 81 MG Miscellaneous Information (Pharmacist Discharge Med Rec Consult) 1 ea UD PRN N/A 08/03/16 12:00 09/02/16 11:59 Gadobutrol (Gadavist) 8 mmol UD PRN IV 08/03/16 14:15 08/07/16 14:14 Physical Exam Date Time Temp Pulse Resp B/P (MAP) Pulse Ox O2 Delivery O2 Flow Rate FiO2 08/04/16 08:05 36.8 91 16 160/87 (111) 93 08/04/16 04:00 36.5 82 18 130/86 (101) 95 Room Air 08/04/16 04:00 Room Air 08/04/16 00:21 36.7 89 18 84/57 (66) 95 Room Air 08/04/16 00:00 Room Air 08/03/16 20:06 36.7 93 18 160/84 (109) 92 Room Air 08/03/16 20:00 Room Air 08/03/16 16:16 36.9 114 16 167/92 (117) 94 Room Air 08/03/16 16:00 95 Room Air 08/03/16 14:41 106 20 178/95 95 08/03/16 13:07 94 16 93 08/03/16 13:02 164/83 08/03/16 12:44 103 16 92 08/03/16 12:32 148/99 08/03/16 12:14 102 15 95 08/03/16 12:02 175/83 08/03/16 11:45 95 Room Air 08/03/16 11:44 118 20 95 08/03/16 11:32 155/88 08/03/16 11:02 179/93 08/03/16 10:59 94 Room Air 08/03/16 10:59 100 08/03/16 10:33 182/94 08/03/16 10:19 36.8 103 20 186/85 93 Room Air Eyes: bilateral eyes normal inspection, bilateral eyes PERRL, bilateral eyes EOMI Mrs. Perez was alert and awake. Mood and affect are appropriate. Speech was fluent with no aphasia or dysarthria. She did not know what month of the year it was. She could only spell "world" forwards and not backwards. She could not recite the months of the year backwards. She was able to read words out loud and identify pictures of objects. CN II - intact visual urena bilaterally. Pupils were equally round & reactive to light. A direct and consensual response was elicited in both eyes. CN III, IV, - extraocular movements were full and intact. CN V - sensation was increased in the V1 distribution on her right forehead as compared to the left side of her forehead. Sensation was normal and symmetric in the V2 and V3 distributions. CN VII - did not fully puff cheeks out on both sides but otherwise demonstrated normal strength in muscles of facial expression. No facial droop noted. CN VIII - finger rub heard bilaterally. CN IX, X - palate elevated bilaterally. CN XI - 5/5 strength with bilateral shoulder shrug. CN XII - normal, midline tongue protrusion. 5/5 strength on lateral deviation against resistance. Motor exam demonstrated 5/5 strength in the upper extremity in the deltoid, biceps, triceps, wrist extensors & flexors, and intrinsic hand muscles bilaterally. In the lower extremity, there was 5/5 strength in the hip flexors, quadriceps, hamstrings, tibialis anterior, and gastrocnemius. Bulk and tone were normal with no spasticity or rigidity. Mrs. Perez could perform rapid tapping movements with her hands bilaterally. No pronator drift was noted. DTRs were elicited in the biceps bilaterally, 2/4, and the triceps and ankle, 1/ 4. No reflex was elicited in the brachioradialis or knee on either side. No plantar reflex was elicited either, but rather a withdrawal response was seen. On [id number] and [id number] testing, slight dysmetria was noted on the right side but was normal on the left side. On sensory exam, Mrs. Perez could detect light touch in all four extremities. Laboratory Results Last 24 Hours Test 08/03/16 10:37 08/03/16 10:56 08/03/16 11:05 08/03/16 11:12 Bedside Glucose 100 mg/dl White Blood Count 6.96 K/uL Red Blood Count 4.50 M/uL Hemoglobin 12.7 g/dL Hematocrit 38.3 % Mean Corpuscular Volume 85.1 fL Mean Corpuscular Hemoglobin 28.2 pg Mean Corpuscular Hemoglobin Concent 33.2 g/dl Platelet Count 219 K/uL Mean Platelet Volume 9.6 fL Neutrophils (%) (Auto) 77.5 % Lymphocytes (%) (Auto) 15.5 % Monocytes (%) (Auto) 5.2 % Eosinophils (%) (Auto) 1.1 % Basophils (%) (Auto) 0.4 % Neutrophils # (Auto) 5.39 K/uL Lymphocytes # (Auto) 1.08 K/uL Monocytes # (Auto) 0.36 K/uL Eosinophils # (Auto) 0.08 K/uL Basophils # (Auto) 0.03 K/uL RDW Standard Deviation 44.8 fL RDW Coefficient of Variation 14.3 % Immature Granulocyte % (Auto) 0.3 % Immature Granulocyte # (Auto) 0.02 K/uL Prothrombin Time 11.0 SECONDS Prothromb Time International Ratio 1.0 Activated Partial Thromboplast Time 25.4 SECONDS Partial Thromboplastin Ratio 1.0 Sodium Level 144 mmol/L Potassium Level 4.1 mmol/L Chloride Level 109 mmol/L Carbon Dioxide Level 27 mmol/L Anion Gap 8.0 mmol/L Blood Urea Nitrogen 13 mg/dl Creatinine 0.97 mg/dl Est Creatinine Clear Calc Drug Dose 47.7 ml/min Estimated GFR () 63.0 Estimated GFR (Non- 54.4 BUN/Creatinine Ratio 13.4 Random Glucose 104 mg/dl Estimated Average Glucose 120 mg/dl Hemoglobin A1c 5.8 % Calcium Level 9.0 mg/dl Total Creatine Kinase 51 U/L Creatine Kinase MB 0.8 ng/ml Creatine Kinase MB Ratio 1.6 Troponin I < 0.015 ng/ml Bedside Prothrombin Time INR 1.1 Urine Color YELLOW Urine Appearance CLEAR Urine pH 7.0 Urine Specific Randolph 1.007 Urine Protein NEG Urine Glucose (UA) NEG Urine Ketones NEG Urine Occult Blood 2+ Urine Nitrite NEG Urine Bilirubin NEG Urine Urobilinogen NEG Urine Leukocyte Esterase TRACE Urine WBC (Auto) 1-5 /hpf Urine RBC (Auto) 5-10 /hpf Urine Hyaline Casts (Auto) 0 /lpf Urine Epithelial Cells (Auto) 0-5 /lpf Urine Bacteria (Auto) NEG Test 08/03/16 19:57 08/04/16 04:06 Total Creatine Kinase 66 U/L 76 U/L Creatine Kinase MB 1.6 ng/ml 2.2 ng/ml Creatine Kinase MB Ratio 2.4 2.9 Troponin I 0.130 ng/ml 0.119 ng/ml White Blood Count 6.34 K/uL Red Blood Count 4.34 M/uL Hemoglobin 12.0 g/dL Hematocrit 37.4 % Mean Corpuscular Volume 86.2 fL Mean Corpuscular Hemoglobin 27.6 pg Mean Corpuscular Hemoglobin Concent 32.1 g/dl Platelet Count 211 K/uL Mean Platelet Volume 10.1 fL Neutrophils (%) (Auto) 67.0 % Lymphocytes (%) (Auto) 22.2 % Monocytes (%) (Auto) 6.9 % Eosinophils (%) (Auto) 3.0 % Basophils (%) (Auto) 0.6 % Neutrophils # (Auto) 4.24 K/uL Lymphocytes # (Auto) 1.41 K/uL Monocytes # (Auto) 0.44 K/uL Eosinophils # (Auto) 0.19 K/uL Basophils # (Auto) 0.04 K/uL RDW Standard Deviation 45.4 fL RDW Coefficient of Variation 14.4 % Immature Granulocyte % (Auto) 0.3 % Immature Granulocyte # (Auto) 0.02 K/uL Prothrombin Time 11.4 SECONDS Prothromb Time International Ratio 1.1 Sodium Level 146 mmol/L Potassium Level 4.0 mmol/L Chloride Level 112 mmol/L Carbon Dioxide Level 26 mmol/L Anion Gap 8.0 mmol/L Blood Urea Nitrogen 10 mg/dl Creatinine 0.79 mg/dl Est Creatinine Clear Calc Drug Dose 58.6 ml/min Estimated GFR () 80.8 Estimated GFR (Non- 69.7 BUN/Creatinine Ratio 12.5 Random Glucose 93 mg/dl Calcium Level 8.2 mg/dl Magnesium Level 2.1 mg/dl Triglycerides Level 73 mg/dl Cholesterol Level 175 mg/dl HDL Cholesterol 34 mg/dl LDL Cholesterol, Calculated 126 mg/dl VLDL Cholesterol, Calculated 15 mg/dl Cholesterol/HDL Ratio 5.1 Assessment & Plan Problem List: Right sided weakness Assessment 1) Acute left thalamic stroke This diagnosis is supported by the findings on MRI, given the presence of an infarct in the left thalamus as compared to an MRI from April 2016. Her physical exam findings of right-sided facial hypersensitivity and slight right- sided dysmetria additionally supports these findings, as the stroke would have disrupted sensory fibers and corticospinal tract fibers from the left brain innervating the right side of her body. 2) Mild vascular dementia Several chronic infarcts were seen on MRI suggesting small vessel disease. Paired with slight deficits on her mental status exam, these findings suggests a mild vascular dementia. Plan 1) Initiate aspirin, statin, and antihypertensive therapy. Antiplatelet therapy is indicated for secondary stroke prevention in patients with ischemic stroke. As she was not already taking aspirin, she can begin to do so. For risk factor management, it is important to control her cholesterol and blood pressure. Therefore, she should be started on a statin. Additionally, given she had a thalamic stroke, it would have been likely due to hypertension. While she denies a history of hypertension, multiple high blood pressures have been recorded and she should be also started on an antihypertensive.
--- NOTE | 2016-08-04 10:31 | ECHOCARDIOGRAM REPORT ---
*NOTICE TO RECEIVING [employer] This information is strictly Confidential and protected under [place] law. [place] law prohibits you from making any further disclosure of this information unless further disclosure is expressly permitted by the written consent of the person to whom it pertains or is authorized by law. A general authorization for the release of medical or other information is not sufficient for this purpose. Hospital accepts no responsibility if the information is made available to any other person, INCLUDING THE PATIENT. Interpretation Summary * Name: TINA QUEVEDO Study Date: 08/04/2016 07:40 AM BP: 160/87 mmHg * Patient Location: .[facility]\S\N278\S\2 HR: 100 * : 1935 (M/d/yyyy) Gender: Female Height: 65 in * Age: 81 yrs Ethnicity: [place] Weight: 176 lb * Ordering Physician: Doug Waldron * Referring Physician: Self, Referred * Performed By: Ida Watkins RDCS * * Reason For Study: CEREBRAL ISCHEMIA/EMBOLUS * BSA: 1.9 m2 * -- Conclusions -- * 1. Normal LV size. Mild concentric LVH. * 2. Mild to moderate LV dysfunction. LVEF 40-45%. Paradoxical septal motion consistent with conduction abnormality. Severely hypokinetic inferior wall, moderately hypokinetic inferolateral wall. * 3. Normal RV size and function. * 4. No significant valvular pathology. * 5. No interatrial shunt (negative bubble study). No other cardioembolic sources identified. * 6. Grade II diastolic dysfunction. * 7. No prior studies for comparison. Procedure Details * A saline contrast injection was performed to assess for cardiac shunting. * The injection was performed through an intravenous line in the right arm. * The attending nurse who injected the saline contrast was DESI ZACARIAS RN. * A total of 20 cc of agitated saline was given. * A contrast injection of Definity was performed to improve assessment of LV function. * Contrast was injected into an intravenous site in the right arm. * One vial of Definity ultrasound contrast was diluted in normal saline to a total volume of 10 ml. A total of '2' ml of solution was administered during imaging. * Lot # [id number] of Definity utilized for procedure. * Expiration date 1 UYEN 18. * The attending nurse who injected the contrast agent was DESI ZACARIAS RN. Left Ventricle * The left ventricle is grossly normal size. * There is mild concentric left ventricular hypertrophy. * Ejection Fraction = 40-45%. * Septal motion is consistent with conduction abnormality. * There is severe inferior wall hypokinesis. * There is moderate posterior wall hypokinesis. Right Ventricle * The right ventricle is grossly normal size. * The right ventricular systolic function is normal as assessed by tricuspid annular plane systolic excursion (TAPSE) (normal >1.5 cm). Atria * Borderline left atrial enlargement. * Right atrial size is normal. * Injection of contrast documented no interatrial shunt. Mitral Valve * The mitral valve is grossly normal. * There is mild mitral annular calcification. * There is no mitral valve stenosis. * There is trace mitral regurgitation. Tricuspid Valve * The tricuspid valve is not well visualized, but is grossly normal. * There is no tricuspid stenosis. * No tricuspid regurgitation. Aortic Valve * The aortic valve opens well. * Aortic stenosis is absent. * Trace aortic regurgitation. Pulmonic Valve * The pulmonary valve is inadequately visualized, but the Doppler data is adequate for interpretation. * There is no pulmonic valvular stenosis. * There is no significant pulmonary regurgitation. Great Vessels * The aortic root and proximal ascending aorta are normal sized. * Normal inferior vena cava size and collapsability with sniff indicates a normal right atrial pressure of 3 mmHg * There is no evidence of pulmonary hypertension. The PA systolic pressure is less than 36 mmHg. Left Ventricular Diastolic Function * Diastolic dysfunction, Grade II, consistent with elevated left atrial pressure. MMode 2D Measurements and Calculations IVSd 1.4 cm IVSs 1.9 cm LVIDd 3.3 cm LVIDs 2.6 cm LVPWd 1.3 cm LVPWs 1.8 cm IVS/LVPW 1.1 FS 21.5 % EDV(Teich) 43.3 ml ESV(Teich) 23.9 ml EF(Teich) 44.7 % EDV(cubed) 35.1 ml ESV(cubed) 17.0 ml EF(cubed) 51.6 % % IVS thick 36.3 % % LVPW thick 44.2 % LV mass(C)d 145.0 grams LV mass(C)dI 77.4 grams/m\S\2 LV mass(C)s 193.8 grams LV mass(C)sI 103.4 grams/m\S\2 CO(Teich) 2.0 l/min CI(Teich) 1.1 l/min/m\S\2 SV(Teich) 19.3 ml SI(Teich) 10.3 ml/m\S\2 CO(cubed) 1.9 l/min CI(cubed) 1.0 l/min/m\S\2 SV(cubed) 18.1 ml SI(cubed) 9.6 ml/m\S\2 ACS 1.8 cm LA dimension 3.4 cm asc Aorta Diam 3.2 cm LVOT diam 2.0 cm LVOT area 3.1 cm\S\2 LVAd ap4 32.2 cm\S\2 LVLd ap4 7.4 cm EDV(MOD-sp4) 116.0 ml LVAs ap4 23.4 cm\S\2 LVLs ap4 6.9 cm ESV(MOD-sp4) 66.3 ml EF(MOD-sp4) 42.8 % LVAd ap2 25.9 cm\S\2 LVLd ap2 6.8 cm EDV(MOD-sp2) 79.1 ml LVAs ap2 18.9 cm\S\2 LVLs ap2 6.4 cm ESV(MOD-sp2) 45.7 ml EF(MOD-sp2) 42.2 % CO(MOD-sp4) 5.2 l/min CI(MOD-sp4) 2.8 l/min/m\S\2 SV(MOD-sp4) 49.7 ml SI(MOD-sp4) 26.5 ml/m\S\2 CO(MOD-sp2) 3.5 l/min CI(MOD-sp2) 1.9 l/min/m\S\2 SV(MOD-sp2) 33.4 ml SI(MOD-sp2) 17.8 ml/m\S\2 Doppler Measurements and Calculations MV E max karla 110.6 cm/sec MV A max karla 55.8 cm/sec MV E/A 2.0 MV P1/2t max karla 107.9 cm/sec MV P1/2t 69.1 msec MVA(P1/2t) 3.2 cm\S\2 MV dec slope 457.4 cm/sec\S\2 MV dec time 0.16 sec Ao V2 max 124.3 cm/sec Ao max PG 6.2 mmHg Ao max PG (full) 3.2 mmHg CRUZ(V,A) 2.1 cm\S\2 CRUZ(V,D) 2.1 cm\S\2 AI max karla 327.3 cm/sec AI max PG 42.9 mmHg AI dec slope 318.6 cm/sec\S\2 AI P1/2t 300.9 msec LV V1 max PG 3.0 mmHg LV V1 max 86.1 cm/sec PA V2 max 81.2 cm/sec PA max PG 2.7 mmHg
--- NOTE | 2016-08-04 10:38 | Discharge Summary ---
Discharge Summary Date of Service Aug 04, 2016. Discharge Summary Admission Date: Aug 03, 2016 at 12:02 Discharge Date: Aug 04, 2016 Discharge Disposition: Home Principal Diagnosis: Acute CVA Consultations: Neurology Medication Reconciliation New Medications: Aspirin (Aspirin EC Low Dose) 81 Mg Ectab 81 MG PO QAM for 30 Days, #30 TABS Atorvastatin (Atorvastatin Calcium) 40 Mg Tab 40 MG PO QAM for 30 Days, #30 TAB Continued Medications: Levothyroxine Sodium (Levothyroxine Sodium) 100 Mcg Tab 1 TAB PO DAILY for 90 Days, #90 TAB 3 Refills Discharge Exam Review of Systems: Constitutional: No fever, No chills, No sweats, No weakness Eyes: No worsening of vision, No eye pain, No diplopia ENT: No hearing loss, No unusual epistaxis, No nasal symptoms, No sore throat, No trouble swallowing Respiratory: No cough, No sputum, No wheezing, No shortness of breath, No dyspnea on exertion Cardiovascular: No chest pain, No orthopnea, No PND, No edema, No claudication Abdomen: No pain, No nausea, No vomiting, No diarrhea Musculoskeletal: No joint pain, No muscle pain, No swelling, No calf pain Genitourinary - Female: No dysuria, No urinary frequency, No urinary urgency , No urinary incontinence Neurologic: No memory loss, No paralysis, No weakness, No numbness/tingling , No vertigo Psychiatric: No depression symptoms, No anhedonism, No anxiety, No insomnia Endocrine: No fatigue, No excessive thirst Integumentary: No rash, No itch Physical Exam: General Appearance: WD/WN, no apparent distress Eyes: normal inspection, PERRL, EOMI, sclerae normal ENT: normal ENT inspection, hearing grossly normal Neck: supple, no adenopathy, thyroid normal, no JVD Respiratory/Chest: chest non-tender, lungs clear, normal breath sounds, no respiratory distress Cardiovascular: regular rate, rhythm, no edema, no gallop, no JVD, no murmur Abdomen / GI: normal bowel sounds, non tender, soft, no organomegaly Extremities: normal inspection, no calf tenderness, normal capillary refill , no pedal edema Neurologic/Psychiatric: no motor/sensory deficits, alert, normal mood/affect , normal reflexes, oriented x 3 Skin: normal color, warm/dry, no rash Lymphatic: no adenopathy Hospital Course Pt is a 81 yo female with sudden onset of left sided weakness that started on . Pt has memory issues and weakness and dizziness was more noted by family. Pt has no recollection of weakness. CT of the head without contrast determined no acute findings, but MRI brain did determined acute left thalamic stroke. MRA head/neck were unremarkable. Pt was admitted to telemetry for further evaluation. Pt was started on ASA 324 mg PO daily and atorvastatin 40 mg PO daily. Cardiac enzymes were trended and found to be negative. BP was elevated during hospital sta with SBP averaging in 160s. This will need to be further optimized as an outpatient. Recommend permissive HTN at discharge. A1C 5.8 and lipid panel reviewed. Will need further reduction in LDL with value of 126. Continue statin and ASA on discharge. PT/OT consulted and pt requires no assistance. No swallowing difficulty and pt able to tolerate diet. D/C home on 08/04 with follow up with PCP in 1-2 weeks Hypothyroidism--we will continue her levothyroxine at home Total Time Spent: Greater than 30 minutes This includes examination of the patient, discharge planning, medication reconciliation, and communication with other providers. Discharge Instructions Please refer to the electronic Patient Visit Report (Discharge Instructions) for additional information. Follow-Up Miguel Pope in 1-2 weeks Additional Copies To Miguel Pope M.D.
[2016-08-04] MEDS ORDERED: ASPEC81 PO (12:23)
[2016-08-04] MEDS ORDERED: LPT40 PO (12:23)
--- NOTE | 2016-08-04 12:28 | Discharge Instructions ---
Discharge Instructions Date of Service Aug 04, 2016. Admission Reason for Admission: Cva (Cerebral Vascular Accident) Discharge Discharge Diagnosis / Problem: CVA Discharge Goals Goal(s): Decrease discomfort, Improve function, Increase independence, Improve disease control, Learn about illness, Diagnostic testing, Prevent Disease Progression Activity Recommendations Activity Limitations: resume your previous activity Exercise/Sports Limitations: none Shower/Bathe: no limitations . Instructions / Follow-Up Instructions / Follow-Up Risk Factors for Stroke: You can reduce your chances of stroke by working with your medical provider to adopt a healthy lifestyle. Some specific ways to lower your chance of stroke are: * If you are a smoker, now is the time to stop smoking cigarettes * If you are diabetic, improve the control of your blood sugars * Avoid excessive amounts of alcohol * Control high blood pressure * Lose weight if you are overweight * Be sure to lead an active lifestyle * Eat a healthy diet low in salt, cholesterol and fat You should know about other risk factors for stroke that you are unable to control. These include: * Age 55 years or older * Male gender * Certain racial groups: , or / * Family History of Stroke, Mini stroke or Heart Attack * Sickle Cell Disease Follow Up: It is important for you to keep your follow up appointments with your medical provider. Patient to be discharged home with home health Please continue to take aspirin 81 mg tablet once a day and atorvastatin 40 mg tablet once a day to further prevent recurrent strokes If worsening weakness, numbness, swallowing or speech difficulties please come to ER Will need to follow up with Dr Pope in 1-2 weeks to further address worsening blood pressure Current Hospital Diet Patient's current hospital diet: AHA Diet (Heart Healthy) Discharge Diet Recommended Diet: AHA Diet (Heart Healthy) Pending Studies Studies pending at discharge: no Laboratory Results Hemoglobin A1c Test 08/03/16 10:56 Range/Units Estimated Average Glucose 120 mg/dl Hemoglobin A1c 5.8 H 4.5-5.6 % Lipid Panel Test 08/04/16 04:06 Range/Units Triglycerides Level 73 0-150 mg/dl Cholesterol Level 175 0-200 mg/dl HDL Cholesterol 34 mg/dl Cholesterol/HDL Ratio 5.1 LDL Cholesterol, Calculated 126 mg/dl Medical Emergencies . Who to Call and When: Medical Emergencies: Call 911 immediately if you experience any of the following warning signs and symptoms of Stroke: * Sudden numbness or weakness of the face, arm or leg, especially on one side of the body * Sudden confusion, trouble speaking or understanding * Sudden trouble seeing in one or both eyes * Sudden trouble walking, dizziness, loss of balance or coordination * Sudden severe headache with no cause Do not delay calling 911 if you experience any warning signs or symptoms of a stroke. Delay in seeking medical attention may affect what treatments can be given to you. . Non-Emergent Contact Non-Emergency issues call your: Primary Care Provider Call Non-Emergent contact if: your pain is worsening . . "Provider Documentation" section prepared by Piero Rivera. . Stroke Core Measures Reason no t-PA for Stroke: Treatment not indicated Reason no antithrom by day 2: Treatment provided - N/A Reason no antithrom at D/C: Treatment not indicated Reason no statin at D/C: Treatment provided - N/A Reason no anticoag w/a fib: Treatment not indicated VTE Core Measure Inpt VTE Proph given/why not?: SCD's
[2016-08-04 13:05] VITALS: BP 160/87; PULSE 91; TEMP 36.8; O2SAT 93
== END 2016-08-04 13:40 | disposition home health service (06) | DRG 65 ==
LOC: C.EDB 10:17 → C.MED 12:02 → ENRESERV 13:16
PROVIDERS: ADMIT Hospitalist; ATTEND Hospitalist
DX: I63.9 Cerebral infarction, unspecified (principal); G81.94 Hemiplegia, unspecified affecting left nondominant side; E03.9 Hypothyroidism, unspecified; F01.50 Vascular dementia, unspecified severity, without behavioral disturbance, psychotic disturbance, mood disturbance, and anxiety; Z86.73 Personal history of transient ischemic attack (TIA), and cerebral infarction without residual deficits

== ENCOUNTER → 2016-08-18 | Outpatient (CLI) | payer OTHER ==
[~2016-08-18] MED LIST changes: +ASPEC81 PO; -HYDR-5688 PO; +LPT40 PO
--- NOTE | 2016-08-18 12:30 | DIAGNOSTIC IMAGING REPORT ---
BILATERAL CAROTID DOPPLER STUDY HISTORY: Mental status change I63.9 CVA (cerebral vascular accident)[id number] COMPARISON: None. TECHNIQUE: Real-time, grayscale, and color Doppler sonography of the carotid arteries was performed. Imaging reviewed in the transverse and longitudinal planes. All measurements were calculated based on NASCET criteria. FINDINGS: Antegrade flow is seen in the bilateral vertebral arteries. The brachial pressures are hemodynamically similar. Mild plaque formation bilaterally The peak systolic velocity within the right ICA is 59. The right systolic ratio is 0.7. The peak systolic velocity within the left ICA is 62. The left systolic ratio is 0.7. IMPRESSION: Mild plaque formation bilaterally. No significant stenotic process. Electronically signed by: Mateus Mantilla M.D. 08/18/2016 12:29 PM Dictated Date/Time: 08/18/2016 12:28 PM
[2016-08-18 12:55] LABS: ALT/SGPT 20 U/L (12-78); BLOOD UREA NITROGEN 13 mg/dl (7-18); BUN/CREATININE RATIO 14.1 (10-20); CALCIUM 8.8 mg/dl (8.5-10.1); CARBON DIOXIDE 26 mmol/L (21-32); CHLORIDE 109 mmol/L (98-107); CHOLESTEROL 107 mg/dl (0-200); CREATININE 0.92 mg/dl (0.60-1.20); GLUCOSE 116 mg/dl (70-99); POTASSIUM 3.7 mmol/L (3.5-5.1); SODIUM 142 mmol/L (136-145); TRIGLYCERIDES 86 mg/dl (0-150); VERY LOW DENSITY LIPOPROT CALC 17 mg/dl
[2016-08-18 13:05] LABS: ALKALINE PHOSPHATASE 60 U/L (45-117); AST/SGOT 13 U/L (15-37); CHOLESTEROL/HDL RATIO 2.4; HDL CHOLESTEROL 44 mg/dl; LDL CHOLESTEROL CALCULATED 46 mg/dl
== END | disposition home or self-care (01) ==
LOC: C.ULTR 11:21
PROVIDERS: ATTEND Physician Assistant
DX: I63.9 Cerebral infarction, unspecified (principal); E03.9 Hypothyroidism, unspecified; E78.5 Hyperlipidemia, unspecified; I25.10 Atherosclerotic heart disease of native coronary artery without angina pectoris; M85.80 Other specified disorders of bone density and structure, unspecified site; E55.9 Vitamin D deficiency, unspecified

== ENCOUNTER → 2016-09-12 | Outpatient (CLI) | payer OTHER ==
[2016-09-12 16:59] LABS: URINE APPEARANCE CLOUDY (CLEAR); URINE BILIRUBIN NEG (NEG); URINE COLOR DK YELLOW; URINE EPITHELIAL CELL AUTO >30 /lpf (0-5); URINE NITRITE NEG (NEG); URINE SPECIFIC GRAVITY 1.025 (1.000-1.030); UROBILINOGEN NEG (NEG); ZZUR CULT IF INDIC CLEAN CATCH YES
[2016-09-12 17:04] LABS: MANUAL MICROSCOPIC REQUIRED? NO; REVIEW REQ? YES
--- NOTE | 2016-09-19 06:40 | CODING QUERY MEDICAL NECESSITY ---
CQSUPPORTING DIAGNOSIS NEEDED A supporting diagnosis is required for the test/procedure performed on this patient in order for us to be reimbursed by the patient's insurance. Please provide a supporting diagnosis for the following test/procedure listed below next to the test name along with your signature. *If there is no additional diagnosis for this patient that would support the following test/procedure please document that below next to the test/procedure. Test(s)/Procedure(s) that require a supporting diagnosis: DOS 09/12/16 URINE CULTURE ORDERED BY RASHAD GRIER Provider Signature: Date: Thank you Marilou Johnson Health Information Management Once completed, please kindly fax back to [phone] For questions please call [phone]
== END | disposition home or self-care (01) ==
LOC: C.LABSPEC 15:36
PROVIDERS: ATTEND Physician Assistant
DX: R42 Dizziness and giddiness (principal); R35.0 Frequency of micturition; N39.0 Urinary tract infection, site not specified

== ENCOUNTER → 2016-09-18 | Outpatient (CLI) | payer OTHER | END | disposition home or self-care (01) | LOC: C.LABSPEC 10:04 | PROVIDERS: ATTEND Internal Medicine Geriatric Medicine | DX: R31.29 Other microscopic hematuria (principal) ==

== ENCOUNTER → 2016-10-02 | Outpatient (CLI) | payer OTHER ==
--- NOTE | 2016-10-02 13:50 | DIAGNOSTIC IMAGING REPORT ---
(CHEST) THORAX WITHOUT CT DOSE: 307.93 mGy.cm HISTORY: PULMONARY NODULE TECHNIQUE: Multiaxial CT images of the chest were performed without contrast. A dose lowering technique was utilized adhering to the principles of ALARA. COMPARISON: Chest CT 05/02/2016. FINDINGS: No pleural effusions. No pneumothorax. The central airways are patent. Punctate calcified granuloma within the left upper lobe. Stable 8 x 4 mm subpleural nodule within the right lower lobe on image 175. A few additional scattered tiny nodular densities remain stable. No new nodules identified. The visualized liver, spleen, and adrenal glands are unremarkable. Left-sided nephrolithiasis. Multiple left peripelvic renal cysts and a 2.1 cm cortical cyst. Tiny hiatus hernia. Stable subcentimeter mediastinal lymph nodes. Normal caliber thoracic aorta. Stable compression of 4 is within the thoracic spine. IMPRESSION: Stable subcentimeter pulmonary nodules with the largest in the right lower lobe measuring 8 x 4 mm. This is likely benign. One-year chest CT follow-up can be performed to ensure stability. Electronically signed by: Rodrick Norwood M.D. 10/02/2016 1:48 PM Dictated Date/Time: 10/02/2016 1:41 PM
== END | disposition home or self-care (01) ==
LOC: C.CTS 12:17
PROVIDERS: ATTEND Internal Medicine Geriatric Medicine
DX: R91.8 Other nonspecific abnormal finding of lung field (principal)

== ENCOUNTER → 2016-11-21 | Outpatient (CLI) | payer OTHER ==
[2016-11-21 11:49] LABS: BASO % 0.8 %; BASO ABS # 0.05 K/uL (0-0.2); COMPLETE YES; EOS % 7.1 %; HEMATOCRIT 37.7 % (37-47); IG% 0.2 %; MEAN CELL VOLUME 88.3 fL (80-100); MEAN CORPUSCULAR HEMOGLOBIN 27.9 pg (25-34); MEAN CORPUSCULAR HGB CONC 31.6 g/dl (32-36); MEAN PLATELET VOLUME 10.5 fL (7.4-10.4); MONO % 7.1 %; NEUT % 62.8 %; PLATELET COUNT 232 K/uL (130-400); RED BLOOD COUNT 4.27 M/uL (4.2-5.4); WHITE BLOOD COUNT 5.92 K/uL (4.8-10.8)
[2016-11-21 11:59] LABS: ALT/SGPT 50 U/L (12-78); BLOOD UREA NITROGEN 16 mg/dl (7-18); BUN/CREATININE RATIO 16.3 (10-20); CALCIUM 9.1 mg/dl (8.5-10.1); CARBON DIOXIDE 29 mmol/L (21-32); CHLORIDE 109 mmol/L (98-107); CHOLESTEROL 106 mg/dl (0-200); GLUCOSE 103 mg/dl (70-99); POTASSIUM 4.1 mmol/L (3.5-5.1); SODIUM 142 mmol/L (136-145); TRIGLYCERIDES 99 mg/dl (0-150); VERY LOW DENSITY LIPOPROT CALC 20 mg/dl
[2016-11-21 12:10] LABS: ALB/GLOB RATIO 0.9 (0.9-2); ALKALINE PHOSPHATASE 83 U/L (45-117); AST/SGOT 48 U/L (15-37); CHOLESTEROL/HDL RATIO 2.8; HDL CHOLESTEROL 38 mg/dl; LDL CHOLESTEROL CALCULATED 48 mg/dl
== END | disposition home or self-care (01) ==
LOC: C.LABPBG 09:44
PROVIDERS: ATTEND Internal Medicine Geriatric Medicine
DX: E03.9 Hypothyroidism, unspecified (principal); E78.5 Hyperlipidemia, unspecified; E55.9 Vitamin D deficiency, unspecified

== ENCOUNTER → 2017-05-19 | Outpatient (CLI) | payer OTHER ==
[2017-05-19 16:43] LABS: BASO % 0.8 %; BASO ABS # 0.05 K/uL (0-0.2); EOS % 6.4 %; EOS ABS # 0.41 K/uL (0-0.5); HEMATOCRIT 40.7 % (37-47); HEMOGLOBIN 12.9 g/dL (12.0-16.0); IG# 0.01 K/uL (0.00-0.02); LYMPH % 27.2 %; LYMPH ABS # 1.74 K/uL (1.2-3.4); MEAN CELL VOLUME 90.8 fL (80-100); MEAN CORPUSCULAR HEMOGLOBIN 28.8 pg (25-34); MEAN CORPUSCULAR HGB CONC 31.7 g/dl (32-36); MEAN PLATELET VOLUME 10.7 fL (7.4-10.4); MONO % 5.5 %; MONO ABS # 0.35 K/uL (0.11-0.59); NEUT % 59.9 %; NEUT ABS # 3.84 K/uL (1.4-6.5); PLATELET COUNT 243 K/uL (130-400); RED CELL DISTRIBUTION WIDTH CV 15.6 % (11.5-14.5); RED CELL DISTRIBUTION WIDTH SD 51.9 fL (36.4-46.3)
[2017-05-19 16:55] LABS: BLOOD UREA NITROGEN 17 mg/dl (7-18); CALCIUM 9.4 mg/dl (8.5-10.1); CARBON DIOXIDE 30 mmol/L (21-32); CREATININE 1.08 mg/dl (0.60-1.20); GLUCOSE 98 mg/dl (70-99); POTASSIUM 4.3 mmol/L (3.5-5.1); SODIUM 139 mmol/L (136-145)
== END | disposition home or self-care (01) ==
LOC: C.LABPBG 11:39
PROVIDERS: ATTEND Internal Medicine Geriatric Medicine
DX: R31.29 Other microscopic hematuria (principal); E03.9 Hypothyroidism, unspecified; I42.9 Cardiomyopathy, unspecified; I10 Essential (primary) hypertension

== ENCOUNTER → 2017-05-27 | Outpatient (CLI) | payer OTHER ==
--- NOTE | 2017-05-27 14:58 | DIAGNOSTIC IMAGING REPORT ---
ABD/PELVIS NO IV OR ORAL CONT CLINICAL HISTORY: 82 years-old Female presenting with R31.9 Hematuria. TECHNIQUE: Multidetector CT of the abdomen and pelvis was performed without the use of intravenous contrast. IV contrast: None. A dose lowering technique was used consistent with the principles of ALARA (as low as reasonably achievable). COMPARISON: CT of the pelvis from 06/22/[address] from 10/02/2016. CT DOSE (mGy.cm): The estimated cumulative dose is 526.96 mGy.cm. FINDINGS: [employer] topogram: Unremarkable. Lung bases: Mosaic attenuation at the lung bases suggest small airways disease. Mild bronchial wall thickening in the lower lobes. Minimal dependent changes likely atelectasis. Aortic valve calcification. Normal heart size. No pericardial or pleural effusion. Liver: Normal morphology. Normal density. Biliary: Mild biliary ductal prominence likely a reservoir effect in the post cholecystectomy state. Gallbladder surgically absent. Pancreas: Moderate parenchymal atrophy. Spleen: Normal noncontrast appearance. Adrenal glands: Normal noncontrast appearance. Kidneys and ureters: Multiple well-defined hypodensities in the kidneys, incompletely characterized without intravenous contrast but likely cysts including several prominent parapelvic cysts on the left. No hydronephrosis. No nephrolithiasis. Bladder: Incompletely evaluated secondary to underdistention. Pelvic organs: Normal noncontrast appearance of the uterus. The left ovary contains a 3.7 cm simple appearing cyst, which is unexpected in a postmenopausal female and incompletely characterized without intravenous contrast. Bowel: Large stool burden in the rectum without significant rectal wall thickening or mesorectal fat infiltration. Significant diverticulosis throughout the sigmoid colon as well as less severely involving the descending colon. Mild stool burden in the more proximal colon. No bowel obstruction. Small hilar hernia. Peritoneal cavity: Fascial thickening along the left superior pelvis without evidence of pericolonic fat stranding to suggest diverticulitis as the etiology. No free fluid or gas. Lymph nodes: No gross lymphadenopathy allowing for noncontrast technique. Vasculature: Atherosclerosis of the normal caliber abdominal aorta. Abdominal wall: Small fat-containing umbilical hernia. Musculoskeletal: Degenerative changes of the spine. Bilateral pars defects of L5. Grade 1 anterolisthesis of L5 on S1. Osteopenia. Compression deformity of T12. This is unchanged since September. Degenerative changes of the sacroiliac joints, hips, and pubic symphysis. IMPRESSION: 1. Multiple bilateral renal cysts. No nephrolithiasis or hydronephrosis. 2. 3.7 cm left ovarian cyst, incomplete characterized without intravenous contrast and unexpected in a postmenopausal female. Further evaluation with pelvic ultrasound is recommended per the [employer] incidental findings committee recommendations. 3. Fascial thickening along the left superior pelvis may be postsurgical in etiology from prior hysterectomy or, less likely represent trace reactive fluid. No convincing evidence of an adjacent inflammatory process. 4. Diverticulosis without convincing evidence of diverticulitis. 5. Small airways disease. 6. Chronic compression deformity of T12 in the setting of osteopenia. Electronically signed by: Dick Pimentel M.D. 05/27/2017 2:57 PM Dictated Date/Time: 05/27/2017 2:43 PM
== END | disposition home or self-care (01) ==
LOC: C.CTS 14:22
PROVIDERS: ATTEND Internal Medicine Geriatric Medicine
DX: R31.9 Hematuria, unspecified (principal); N28.1 Cyst of kidney, acquired; N83.202 Unspecified ovarian cyst, left side; M62.89 Other specified disorders of muscle; J98.4 Other disorders of lung; M48.54XA Collapsed vertebra, not elsewhere classified, thoracic region, initial encounter for fracture; M85.88 Other specified disorders of bone density and structure, other site

== ENCOUNTER → 2017-10-02 | Outpatient (CLI) | payer OTHER ==
[~2017-10-02] MED LIST changes: -ASPEC81 PO; +ASPI-320 PO
== END | disposition home or self-care (01) ==
LOC: C.LABPBG 10:16
PROVIDERS: ATTEND Internal Medicine Geriatric Medicine
DX: E03.9 Hypothyroidism, unspecified (principal)

== ENCOUNTER → 2017-10-05 | Outpatient (CLI) | payer OTHER ==
--- NOTE | 2017-10-05 11:59 | DIAGNOSTIC IMAGING REPORT ---
(CHEST) THORAX WITHOUT CT DOSE: 277.96 mGy.cm HISTORY: Nodules R91.8 Multiple pulmonary nodules TECHNIQUE: Multiaxial CT images of the chest were performed without contrast. A dose lowering technique was utilized adhering to the principles of ALARA. COMPARISON: 10/02/2016 FINDINGS: No change in the prior study. Pulmonary micronodule aorta is nonprogressive. There is no evidence for new interval or progressive process. No significant hilar or mediastinal adenopathy. Limited evaluation the upper abdomen shows presence of a stable left renal cyst. IMPRESSION: No acute process. Stable low suspicion pulmonary micronodularity. A 1 year follow-up is suggested. The above report was generated using voice recognition software. It may contain grammatical, syntax or spelling errors. Electronically signed by: Mateus Mantilla M.D. 10/05/2017 11:58 AM Dictated Date/Time: 10/05/2017 11:51 AM
== END | disposition home or self-care (01) ==
LOC: C.CTS 11:16
PROVIDERS: ATTEND Internal Medicine Geriatric Medicine
DX: R91.8 Other nonspecific abnormal finding of lung field (principal); R91.1 Solitary pulmonary nodule